=== PATIENT | female | born 1990 | race Hispanic/Latino ===

== ENCOUNTER 2019-06-05 05:29 | Inpatient (IN) | payer BC ==
[~2019-06-05] VITALS: Ht 167.6 cm; Wt 126.1 kg
[2019-06-05] MEDS ORDERED: CEFAZOLIN SODIUM 1 GM VIAL IVP PRN ×2 (05:30→06:00)
[2019-06-05] MEDS ORDERED: LACTATED RINGERS 1000ML 1,000 ML IV SCH (05:30)
[2019-06-05 06:38] LABS: HEMATOCRIT 36.1 % (36-48); MEAN CORPUSCULAR HEMOGLOBIN 27.3 pg (27.0-33.0); MEAN CORPUSCULAR VOLUME 82.8 fL (79-99); PLATELET COUNT (AUTO) 251 K/uL (130-400); RED BLOOD CELL COUNT(AUTO) 4.36 MIL/uL (4.00-5.50); RED CELL DISTRIBUTION WIDTH 14.6 % (11.0-15.5); WHITE BLOOD COUNT (AUTO) 9.3 K/uL (4.8-10.8)
[2019-06-05] MEDS ORDERED: CITRIC ACID/SODIUM CITRATE 30 ML UDCUP ONE (07:22)
[2019-06-05] MEDS ORDERED: CALDOLOR 800MG+NS 250ML 250 ML IV ONE (07:22)
[2019-06-05] MEDS ORDERED: CALDOLOR 800MG+NS 250ML 250 ML IV PRN (07:30)
[2019-06-05] MEDS ORDERED: CITRIC ACID/SODIUM CITRATE 30 ML UDCUP PO PRN (07:30)
[2019-06-05] MEDS ORDERED: DURAMORPH PF1 MG/ML 10ML AMP IV ONE (07:45)
[2019-06-05] MEDS ORDERED: CEFAZOLIN SODIUM 1 GM VIAL IVP ONE (07:48)
[2019-06-05] MEDS ORDERED: ONDANSETRON HCL 4 MG/2 ML VIAL ONE (08:15)
[2019-06-05] MEDS ORDERED: EPHEDRINE SULFATE 50 MG/ML AMPULE ONE ×2 (08:22→09:06)
[2019-06-05] MEDS ORDERED: OXYTOCIN-LR 20 UNITS/1000 ML 1,000 ML IV ONE (08:56)
[2019-06-05] MEDS ORDERED: DiphenhydrAMINE HCL 50 MG/ML VIAL IVP PRN (09:45)
[2019-06-05] MEDS ORDERED: ONDANSETRON HCL 4 MG/2 ML VIAL IVP PRN (09:45)
[2019-06-05] MEDS ORDERED: NALOXONE HCL 0.4 MG/1 ML ML IVP PRN ×3 (09:45)
[2019-06-05 10:32] VITALS: BP 96/61
[2019-06-05] MEDS ORDERED: PROMETHAZINE HCL 25 MG/ML 1ML AMPULE IM PRN (10:45)
[2019-06-05] MEDS ORDERED: OXYTOCIN-LR 20 UNITS/1000 ML 1,000 ML IV PRN (10:45)
[2019-06-05] MEDS ORDERED: MEPERIDINE-PF 75 MG/ML SYG IM PRN (10:45)
[2019-06-05] MEDS ORDERED: SODIUM CHLORIDE 0.9% 10 ML VIAL IVP PRN (10:45)
[2019-06-05] MEDS ORDERED: PNV1TABL17 PO (14:48)
[2019-06-05 17:00] VITALS: BP 97/52
[2019-06-05] MEDS: DEXTROSE 5 %-0.45 % NACL 1,000 ML IV PRN (17:04)
[2019-06-05] MEDS: CALDOLOR 800MG+NS 250ML 250 ML IV SCH (18:48)
--- NOTE | 2019-06-05 19:00 | NUR ---
Report received from Maggy Castro LVN.
[2019-06-05 19:31] VITALS: BP 92/53
--- NOTE | 2019-06-05 19:45 | NUR ---
Patient; Patient awake in bed her baby. IV of D5 1/2 NS infusing at 150 ml/hour. Hagen Catheter patent flowing clear yellow urine. Fundus firm at the level of umbilicus with small Lochia Rubra. Plan of care discussed with patient, she verbalizes understanding.
[2019-06-05 23:15] VITALS: BP 99/51
[2019-06-06] MEDS: CALDOLOR 800MG+NS 250ML 250 ML IV SCH (02:35)
[2019-06-06] MEDS: DEXTROSE 5 %-0.45 % NACL 1,000 ML IV PRN (02:37)
[2019-06-06 03:15] VITALS: BP 97/52
--- NOTE | 2019-06-06 06:15 | NUR ---
Abdominal dressing; Abdominal dressing taken out with scant amount of brownish drainage. Incision Open to air,with Dermabond. Hagen Catheter taken out patient tolerated well. Advice to call or help if needed. She verbalizes understanding.
--- NOTE | 2019-06-06 06:30 | NUR ---
Activity: Patient assisted by Giovanni Medina. SAHIL to get up in bed and sit at bedside chair.
[2019-06-06 06:57] LABS: HEMATOCRIT 30.9 % (36-48); MEAN CORPUSCULAR HEMOGLOBIN 28.2 pg (27.0-33.0); MEAN CORPUSCULAR HGB CONC 32.4 g/dL (32.0-36.0); PLATELET COUNT (AUTO) 203 K/uL (130-400); RED BLOOD CELL COUNT(AUTO) 3.55 MIL/uL (4.00-5.50); RED CELL DISTRIBUTION WIDTH 14.6 % (11.0-15.5); WHITE BLOOD COUNT (AUTO) 10.2 K/uL (4.8-10.8)
[2019-06-06 07:27] VITALS: BP 96/59
[2019-06-06] MEDS ORDERED: BISACODYL 10 MG SUPP.RECT RC PRN (07:45)
[2019-06-06] MEDS ORDERED: SIMETHICONE 80 MG TAB.CHEW PO PRN (07:45)
[2019-06-06] MEDS ORDERED: HYDROCODONE/ACETAMINOPHEN 5/325 MG TAB PO PRN (07:45)
[2019-06-06] MEDS ORDERED: ACETAMINOPHEN EXTRA STRENGTH 500 MG TABLET PO PRN (07:45)
[2019-06-06] MEDS ORDERED: ACETAMINOPHEN-CODEINE 300/30MG TAB PO PRN (07:45)
[2019-06-06 08:10] LABS: HEPATITIS Bs ANTIGEN SCREEN P Negative (Negative)
[2019-06-06] MEDS ORDERED: DOCUSATE SODIUM 100 MG CAP PO SCH (09:00)
--- NOTE | 2019-06-06 09:45 | NUR ---
PATIENT AMBULATING IN HALLWAY WITH SIGNIFICANT OTHER. PATIENT REPORTED +BM AND +FLATUS. NO DIZZINESS REPORTED. STEADY GAIT NOTED.
[2019-06-06] MEDS ORDERED: IBUPROFEN 800 MG TAB PO PRN (10:15)
--- NOTE | 2019-06-06 10:55 | NUR ---
INCISION CARE REVIEWED WITH PATIENT. AT BEDSIDE. QUESTIONS INVITED AND ANSWERED. PATIENT VOICED UNDERSTANDING.
[2019-06-06 12:13] VITALS: BP 103/63
--- NOTE | 2019-06-06 12:15 | NUR ---
DISCHARGE INSTRUCTIONS READ AND EXPLAINED TO PATIENT. COVID 19 INFORMATION HANDED TO PATIENT. RX FOR IBUPROFEN 800 TYLENOL#3 AND COLACE HANDED TO PATIENT. PATIENT VOICED UNDERSTANDING ON ALL INFORMATION.
--- NOTE | 2019-06-06 13:40 | NUR ---
PATIENT LEFT UNIT VIA WHEELCHAIR WITH BABY IN ARMS. PERSONAL VEHICLE USED FOR TRANSPORTATION ACCOMPANIED BY SIGNIFICANT OTHER. BABY SECURE IN CARSEAT. NO COMPLAINTS OR CONCERNS ADDRESSED FROM PATIENT ON DISCHARGE.
== END 2019-06-06 13:40 | disposition home or self-care (01) | DRG 788 ==
LOC: LDH 05:29 → WSH 10:31
PROVIDERS: ADMIT Obstetrics & Gynecology; ATTEND Obstetrics & Gynecology
PROC: 10D00Z1 Extraction of Products of Conception, Low, Open Approach (ICD-10-PCS; principal; 2019-06-05 07:30)
DX: O36.63X0 Maternal care for excessive fetal growth, third trimester, not applicable or unspecified (principal); Z37.0 Single live birth; Z3A.39 39 weeks gestation of pregnancy; O77.0 Labor and delivery complicated by meconium in amniotic fluid; O99.214 Obesity complicating childbirth; E66.01 Morbid (severe) obesity due to excess calories
CPT/HCPCS: 36415; 59510; 85027; 86592; 86850; 86900; 86901; 87340; A4344; G0378; J0690; J1741; J2274; J2405; J2590; J3490; J7120

== ENCOUNTER 2020-07-16 02:31 | Emergency (ER) | payer BC ==
[~2020-07-16 02:31] MED LIST: PNV1TABL17 PO
[2020-07-16] MEDS ORDERED: LIDOCAINE HCL 2% VISCOUS 15 ML UDCUP ONE (03:29)
[2020-07-16] MEDS ORDERED: MAG HYDROX/AL HYDROX/SIMETH ES 30 ML SUSP UDCUP ONE (03:29)
[2020-07-16] MEDS ORDERED: PANTOPRAZOLE SODIUM 40 MG TABLET.DR ONE (03:29)
[2020-07-16] MEDS ORDERED: ONDANSETRON ODT 4 MG TAB ONE (03:30)
[2020-07-16] MEDS ORDERED: FAMOTIDINE 20MG TAB 20 MG TAB ONE (03:31)
== END 2020-07-16 04:33 | disposition home or self-care (01) ==
LOC: EDH 02:31
DX: K29.00 Acute gastritis without bleeding (principal); K21.9 Gastro-esophageal reflux disease without esophagitis; Z90.49 Acquired absence of other specified parts of digestive tract; Z98.890 Other specified postprocedural states
CPT/HCPCS: 81025